=== PATIENT | male | born 1980 | race Caucasian/White ===

== ENCOUNTER 2016-07-05 05:35 | Emergency (ER) | payer OTHER ==
[~2016-07-05] VITALS: Ht 177.8 cm; Wt 95.6 kg
[~2016-07-05 05:35] MED LIST: ADDERALL20 MG PO; ADVAIR 100/501 DISK IH; ALBUTEROL SULF8.5 GM IH; ALPRAZOLAM1 MG PO; CIPRO500 MG PO; CLONAZEPAM; DESYREL100 MG PO; DEXTROAMP-AMPHE20 MG PO; DIAZEPAM10 MG PO; DILAUDID2 MG PO; FLUOXETINE HCL20 MG PO; GEODON80 MG PO; HALDOL5 MG PO; HYCODAN SYRUP480 ML PO; KLONOPIN0.5 M1 PO; LITHIUM CARBON300 M1 PO; LITHIUM CARBON300 MG PO; LYRICA100 MG PO; METHYLPHENIDATE20 M3 PO; MOBIC; OXYCODONE; PREDNISONE20 MG PO; PROZAC20 MG PO; RISPERDAL1 MG PO; RITALIN20 MG PO; TEGRETOL100 MG PO; TRAMADOL HCL50 MG PO; VISTARIL50 MG PO; XANAX1 MG PO; ZITHROMAX250 MG PO
[2016-07-05 06:28] LABS: HEMATOCRIT 43.1 % (38.0-50.0); MCH 29.2 PG (29.0-34.0); MCHC 33.6 G/DL (30.0-36.0); MCV 86.9 FL (86-99); MEAN PLAT.VOLUME 8.5 uM^3 (9.0-12.4); PLATELET COUNT 295 K/uL (156-360); RBC DIS.WIDTH-CV 12.5 % (11.8-14.6); RBC DIS.WIDTH-SD 39.2 % (39-53); RED BLOOD COUNT 4.96 M/uL (4.00-5.50); WHITE BLOOD COUNT 8.7 K/uL (4.1-10.2)
[2016-07-05 06:35] LABS: ADD MEDTOX COMMENT Y; AMPHETAMINE NEGATIVE (500 ng/mL); BARBITURATES NEGATIVE (200 ng/mL); BENZODIAZEPINES NEGATIVE (150 ng/mL); COCAINE PRESUMPTIVE POSITIVE (150 ng/mL); INTERNAL CONTROLS VALID? YES; METHADONE NEGATIVE (200 ng/mL); METHAMPHETAMINE NEGATIVE (500 ng/mL); OPIATES (MORPHINE) PRESUMPTIVE POSITIVE (100 ng/mL); OXYCODONE NEGATIVE (100 ng/mL); PHENCYCLIDINE NEGATIVE (25 ng/mL); PROPOXYPHENE NEGATIVE (300 ng/mL); THC CANNABINOIDS NEGATIVE (50 ng/mL); TRICYCLIC ANTIDEPRESSANTS NEGATIVE (300 ng/mL)
[2016-07-05 06:44] LABS: CHLORIDE 104 mEq/L (99-109); POTASSIUM 4.1 mEq/L (3.7-5.4); SODIUM 140 mEq/L (136-147)
[2016-07-05 06:46] LABS: GLUCOSE 78 mg/dL (70-99)
[2016-07-05 06:47] LABS: ANION GAP 7 MEQ/L (2-14)
[2016-07-05 06:49] LABS: SERUM ETHYL ALCOHOL < 10 mg/dL
[2016-07-05 06:50] LABS: GFR ESTIMATE (CALCULATED) > 59 mL/min/
[2016-07-05 06:51] LABS: UREA NITROGEN (BUN) 14 mg/dL (9-23)
[2016-07-05 10:30] VITALS: BP 134/89
== END 2016-07-05 10:30 | disposition home or self-care (01) ==
LOC: EME 05:35
PROVIDERS: Emergency Medicine
DX: F31.4 Bipolar disorder, current episode depressed, severe, without psychotic features (principal); F11.10 Opioid abuse, uncomplicated; R45.851 Suicidal ideations; Z87.442 Personal history of urinary calculi; F17.200 Nicotine dependence, unspecified, uncomplicated
CPT/HCPCS: 80048; 84999; 85027; 90839; 99281; 99285; G0480

== ENCOUNTER 2017-11-01 18:24 | Emergency (ER) | payer OTHER ==
[~2017-11-01] VITALS: Ht 175.3 cm; Wt 104.3 kg
[2017-11-01 18:51] LABS: HEMATOCRIT 43.6 % (38.0-50.0); MCH 30.2 PG (29.0-34.0); MCHC 34.4 G/DL (30.0-36.0); MCV 87.9 FL (86-99); PLATELET COUNT 306 K/uL (156-360); RBC DIS.WIDTH-CV 12.8 % (11.8-14.6); RBC DIS.WIDTH-SD 40.8 % (39-53); RED BLOOD COUNT 4.96 M/uL (4.00-5.50); WHITE BLOOD COUNT 9.1 K/uL (4.1-10.2)
[2017-11-01 18:52] LABS: APPEARANCE CLEAR ((CLEAR)); BILIRUBIN NEGATIVE; BLOOD NEGATIVE; COLOR YELLOW ((YELLOW)); GLUCOSE (STRIP) NEGATIVE; KETONES NEGATIVE; LEUKOCYTES NEGATIVE; NITRITE NEGATIVE; PROTEIN (STRIP) NEGATIVE; SPECIFIC GRAVITY 1.008 (1.000-1.030); UCUL ADDED? NO; UROBILINOGEN 0.2 MG/DL (0.2-1.0)
[2017-11-01 19:03] LABS: ALBUMIN 4.4 g/dL (3.2-4.8); CHLORIDE 104 mEq/L (99-109)
[2017-11-01 19:04] LABS: POTASSIUM 3.8 mEq/L (3.7-5.4); SODIUM 137 mEq/L (136-147)
[2017-11-01 19:06] LABS: GLUCOSE 122 mg/dL (70-99); TOTAL PROTEIN 7.6 g/dL (6.4-8.3)
[2017-11-01 19:08] LABS: TOTAL BILIRUBIN 0.4 mg/dL (0.0-1.0)
[2017-11-01 19:09] LABS: ALKALINE PHOSPHATASE 90 IU/L (3-129); CREATININE 0.8 mg/dL (0.6-1.3); GFR ESTIMATE (CALCULATED) > 59 mL/min/ (58.99-99999)
[2017-11-01 19:11] LABS: AST (GOT) 36 IU/L (2-34); UREA NITROGEN (BUN) 7 mg/dL (9-23)
[2017-11-01 19:12] LABS: ALT (GPT) 48 IU/L (3-49)
[2017-11-01 20:05] LABS: AMPHETAMINE NEGATIVE (500 ng/mL); BARBITURATES NEGATIVE (200 ng/mL); BENZODIAZEPINES NEGATIVE (150 ng/mL); BUPRENORPHINE NEGATIVE (10 ng/mL); COCAINE NEGATIVE (150 ng/mL); METHADONE NEGATIVE (200 ng/mL); METHAMPHETAMINE NEGATIVE (500 ng/mL); OPIATES (MORPHINE) NEGATIVE (100 ng/mL); OXYCODONE NEGATIVE (100 ng/mL); PHENCYCLIDINE NEGATIVE (25 ng/mL); PROPOXYPHENE NEGATIVE (300 ng/mL); THC CANNABINOIDS PRESUMPTIVE POSITIVE (50 ng/mL); TRICYCLIC ANTIDEPRESSANTS NEGATIVE (300 ng/mL)
[2017-11-01 20:59] VITALS: BP 138/89
== END 2017-11-01 21:00 | disposition left against medical advice (07) ==
LOC: EME 18:24
DX: R10.11 Right upper quadrant pain (principal); B19.20 Unspecified viral hepatitis C without hepatic coma; Z59.0 Homelessness; Z87.442 Personal history of urinary calculi; Z88.5 Allergy status to narcotic agent; Z88.2 Allergy status to sulfonamides; F17.200 Nicotine dependence, unspecified, uncomplicated; Z71.6 Tobacco abuse counseling; F41.9 Anxiety disorder, unspecified
CPT/HCPCS: 80053; 81003; 84999; 85027; 99281; 99283; J1885